=== PATIENT | female | born 1990 | race African-American/Black ===

== ENCOUNTER 2024-09-04 02:08 | Emergency (ER) | payer OTHER ==
[~2024-09-04] VITALS: Ht 160 cm; Wt 49.9 kg
[2024-09-04 02:34] VITALS: PULSE 88; RESP 20; TEMP 98.7; O2SAT 100
[2024-09-04 03:03] LABS: BASOPHILS # (AUTO) 0.1 (0.0-0.1); BASOPHILS % 0.9 % (0.0-1.0); EOSINOPHILS # (AUTO) 0.2 (0.0-0.4); EOSINOPHILS % 2.6 % (0.0-6.0); HEMATOCRIT 37.8 % (34.2-44.1); HEMOGLOBIN 11.1 g/dL (12.0-16.0); LYMPHOCYTES # (AUTO) 1.9 (1.0-3.2); LYMPHOCYTES % 32.6 % (18.0-39.1); MEAN CORPUSCULAR HEMOGLOBIN 26.1 pg (28-32); MEAN CORPUSCULAR HGB CONC 29.4 g/dL (31-35); MEAN CORPUSCULAR VOLUME 88.7 fL (81-99); MONOCYTES # (AUTO) 0.4 (0.2-0.8); MONOCYTES % 7.5 % (4.4-11.3); NEUTROPHILS # (AUTO) 3.2 (2.1-6.9); NEUTROPHILS % 56.2 % (38.7-80.0); PLATELET COUNT 245 x10e3/uL (140-360); RED BLOOD COUNT 4.26 x10e6/uL (3.6-5.1); RED CELL DISTRIBUTION WIDTH 18.6 % (11.7-14.4)
[2024-09-04 03:20] LABS: CALCIUM 9.7 mg/dL (8.4-10.2); CREATININE, SERUM 0.81 mg/dL (0.57-1.11)
== END 2024-09-04 03:35 | disposition home or self-care (01) ==
LOC: ER 02:18
DX: D25.9 Leiomyoma of uterus, unspecified (principal); D64.9 Anemia, unspecified
CPT/HCPCS: 36415; 80048; 84702; 85025; 99283